=== PATIENT | male | born 1945 | race Caucasian/White ===

== ENCOUNTER 2024-11-06 06:19 | Day surgery (SDC) | payer MEDICARE, BC, SELFPAY ==
[2024-11-06] VITALS (16 sets, daily range): BP systolic 91–141; BP diastolic 48–77; PULSE 44–59; RESP 16–20; TEMP 35.9–36.7; O2SAT 94–99; BMI 23.0
[2024-11-06] MEDS: LACTATED RINGERS 1000 ML 1,000 ML 100 ML IV ×2 (07:00→08:17)
[2024-11-06] MEDS: ACETAMINOPHEN 500 MG TABLET 1000 MG PO (07:15)
[2024-11-06] MEDS: OXYCODONE (CR) 10 MG TAB.ER.12H PO (07:15)
[2024-11-06] MEDS: MIDAZOLAM HCL 1 MG/ML inj IVP (07:30)
[2024-11-06] MEDS: fentaNYL 100 MCG/2 ML inj IVP (07:30)
--- NOTE | 2024-11-06 07:40 | SUR.PREOP ---
TIME?OUT:? 0725, lefet shoulder PT/RN/MDA?VERIFICATION?OF?SURGICAL?SITE,?PROCEDURE,?AND?CONSENT OBTAINED?PRIOR?TO?INVASIVE?PROCEDURE.
[2024-11-06] MEDS: CEFAZOLIN 1 GM inj IVP (08:09)
[2024-11-06] MEDS: TRANEXAMIC ACID 100 MG/ML INJ 1000 MG IV (08:09)
--- NOTE | 2024-11-06 08:20 | W.PM.NB ---
Nerve Block Nerve Block Time Seen by Provider: 07:42 Date Seen: 11/06/24 Type of block requested by surgeon for post-operative analgesia: supraclavicular Side: left Time out performed: Yes Verification of patient name: Yes Verification of date of : Yes Site marking: site marked Name of person performing procedure: Carlos A Continuous monitoring Was continuous monitoring of O2 sat, B/P, lunchroom monitor, recorded every 15 minutes?: Yes Procedure Checklist: sterile prep, needles and gloves Ultrasound guided. Images saved: Yes Medications given in 5ml increments after negative aspiration: Marcaine %: 0.25 mL: 7.5 Needle gauge: 22 and Exparel mL: 7.5 Patient tolerated procedure well: Yes Block Charges Block Charge (with Pro Fee): Brachial Plexus Use of Ultrasound Machine for Block: Yes- US Guidance/pain block
--- NOTE | 2024-11-06 09:20 | P.ANES_ITS ---
Anesthesia Charges Start Date/Time Anesthesia Start Date: 11/06/24 Anesthesia Start Time: 07:40 Stop Date/Time Anesthesia Stop Date: 11/06/24 Anesthesia Stop Time: 10:18 Summary Extremes of Age - Over 70 or under 1: MDA Coding CPT Codes CPT Codes: ANESTH SHOULDER REPLACEMENT - 97913 ([id number]) P3 - PATIENT W/SEVERE SYS DISEASE, QK - ADMINISTRATIVE CLERK 2-4 CNCRNT ANES PROC, QX - NATIONAL SALES ASSOCIATE SVC W/ MD MED DIRECTION Additional Codes: Summary - Extremes of Age - Over 70 or under 1: MDA ([id number])
--- NOTE | 2024-11-06 09:20 | W.ANESCHARGE ---
Anesthesia Charges Start Date/Time Anesthesia Start Date: 11/06/24 Anesthesia Start Time: 07:40 Stop Date/Time Anesthesia Stop Date: 11/06/24 Anesthesia Stop Time: 10:18 Summary Extremes of Age - Over 70 or under 1: MDA Coding CPT Codes CPT Codes: ANESTH SHOULDER REPLACEMENT - 19982 ([id number]) P3 - PATIENT W/SEVERE SYS DISEASE, QK - RESAW OPERATOR 2-4 CNCRNT ANES PROC, QX - INSTRUCTOR GROUND SERVICES SVC W/ MD MED DIRECTION Additional Codes: Summary - Extremes of Age - Over 70 or under 1: MDA ([id number])
--- NOTE | 2024-11-06 09:33 | CRLHL7_ITS ---
For Patients: As a result of the Cures Act, medical imaging exams and procedure reports are released immediately into your electronic medical record. You may view this report before your referring provider. If you have questions, please contact your health care provider. Indication: Postop Technique: Two views left shoulder Findings/Impression: Hardware from a left reverse total shoulder arthroplasty is in satisfactory position. Bone alignment is normal. No sign of acute fracture. Postop changes are within normal limits. Dictated by Tin Karimi MD @ 11/06/2024 10:53:41 AM (Electronically Signed)
--- NOTE | 2024-11-06 09:34 | P.ORPRC_ITS ---
Procedure Note Date of procedure: 11/06/24 Procedure: PREOPERATIVE DIAGNOSIS: Left shoulder rotator cuff tear arthropathy POSTOPERATIVE DIAGNOSIS: Left shoulder rotator cuff tear arthropathy NAME OF OPERATION: Left upper extremity reverse shoulder arthroplasty, biceps tenodesis SURGEON: Siva Nguyen MD COAL FEEDER OPERATOR: Lena Salinas PA-C ANESTHESIA: General endotracheal ESTIMATED BLOOD LOSS: 100 mL COMPLICATIONS: None SPECIMENS: None DRAINS: None PREOPERATIVE ANTIBIOTICS: Ancef 1 grams IMPLANTS: 1. Tornier 25mm x 30mm baseplate 2. 36mm standard glenosphere 3. 6B humeral stem 4. Low eccentric +0 humeral tray 5. 36mm +6 polyethylene INDICATIONS: The patient is a 79-year-old with a longstanding history of severe, unrelenting left shoulder pain secondary to rotator cuff tear arthropathy. Despite appropriate nonoperative management, including activity modification, anti-inflammatories, [id number] pain medication, physical therapy, and injections they continue to have pain and disability. Operative intervention was offered. The risks, benefits and expected outcomes were discussed in detail. These included but were not limited to: Infection, bleeding, injury to blood vessel or nerve, venous thromboembolism. All questions were answered to their satisfaction. Use of an ob gyn physician assistant was necessary throughout the case for patient positioning and safety, soft tissue retraction, and closure. PROCEDURE: General anesthesia was administered. The patient was placed in the lazy beach chair position on the operating room table. The left upper extremity was prepped and draped in the usual sterile fashion. A standard deltopectoral incision was made. Subcutaneous dissection was taken with electrocautery to the deltopectoral interval. The cephalic vein was mobilized, lateral branches were cauterized. The vein was taken medially with the pectoralis. We bluntly entered the deltopectoral interval. We freed up the deltoid. The upper 1/3 of the insertion of the pectoralis was divided with cautery. The static retractor was placed. The clavipectoral fascia and CA ligament were divided. The circumflex vessels were controlled with electrocautery. The biceps was dissected out of the bicipital groove, was tagged with a #2 FiberWire suture and divided proximally. Two fiberWire sutures were placed in the subscapularis. The subscap was subperiosteally elevated off of the lesser tuberosity. The humeral head was delivered into the wound. The intramedullary humeral cutting guide was placed. We made the cut at the anatomic neck, in 30? of retroversion. Humeral sounds were used to assess the diameter of the canal. The broach was placed and had good rotational stability. The calcar reamer was used and the protective base plate cover was placed. Attention was then turned to the glenoid. Hohmann retractors were placed poste riorly. The labrum and biceps stump were sharply debrided. The origin of the inferior glenohumeral ligaments were subperiosteally released off of the glenoid. The drill guide was placed. The guide pin was placed in 0? of cephalic tilt. The reamer was used to bleeding bone. The central drill was used x2. The tap was used. The standard base plate was placed. This had excellent purchase. Locking screws x 2 were placed. The glenosphere was placed, the set screw was tightened. Attention then returned to the humerus. We placed a low eccentric standard base plate and standard poly. We reduced the shoulder and took it through a range of motion. It was found to be stable with appropriate soft tissue tension. Trial humeral components were removed. The biceps was tenodesed in the bicipital groove with drill holes and our previously placed FiberWire suture. We placed #2 FiberWire sutures in the lesser tuberosity for subsequent subscap repair. We assembled the humeral component on the back table. We placed it in the center of our subscapularis repair sutures and tapped it down to our humeral cut. This had excellent purchase. The shoulder was reduced and again was found to be sta ble with appropriate soft tissue tension. We did a 3 min dilute Betadine solution soak. We irrigated the wound with 3 L of normal saline via pulse lavage. We repaired the subscapularis to the lesser tuberosity with our previously placed FiberWire sutures. The deltopectoral interval was loosely reapproximated with an 0 Vicryl in an interrupted [id number] fashion. Subcutaneous tissues were closed with the 2-0 Vicryl and a running 3-0 Monocryl suture. The skin was sealed with glue. A dry dressing and sling were applied. Sponge and needle counts were correct x2. The patient tolerated the procedure well, there were no apparent complications. They were awakened and extubated in the operating room, taken to the postanesthesia care unit in satisfactory condition. PLAN: The patient will be mobilized with physical therapy. The sling will be used for 6 weeks postoperatively. Active range of motion in forward flexion and abduction as tolerates. No external rotation greater than 0? for 6 weeks postoperatively. They will be discharged to home once medically appropriate.
--- NOTE | 2024-11-06 10:17 | P.ANES_ITS ---
Anesthesia Charges Start Date/Time Anesthesia Start Date: 11/06/24 Anesthesia Start Time: 07:40 Stop Date/Time Anesthesia Stop Date: 11/06/24 Anesthesia Stop Time: 10:18 Summary Extremes of Age - Over 70 or under 1: DAYCARE TEACHER Coding CPT Codes CPT Codes: ANESTH SHOULDER REPLACEMENT - 98924 ([id number]) P3 - PATIENT W/SEVERE SYS DISEASE, QK - DENTAL OFFICER 2-4 CNCRNT ANES PROC, QX - DAYCARE TEACHER SVC W/ MD MED DIRECTION Additional Codes: Summary - Extremes of Age - Over 70 or under 1: DAYCARE TEACHER ([id number])
--- NOTE | 2024-11-06 10:17 | W.ANESCHARGE ---
Anesthesia Charges Start Date/Time Anesthesia Start Date: 11/06/24 Anesthesia Start Time: 07:40 Stop Date/Time Anesthesia Stop Date: 11/06/24 Anesthesia Stop Time: 10:18 Summary Extremes of Age - Over 70 or under 1: HOSE SUSPENDER CUTTER Coding CPT Codes CPT Codes: ANESTH SHOULDER REPLACEMENT - 77848 ([id number]) P3 - PATIENT W/SEVERE SYS DISEASE, QK - INFORMATION SERVICES CONSULTANT 2-4 CNCRNT ANES PROC, QX - HOSE SUSPENDER CUTTER SVC W/ MD MED DIRECTION Additional Codes: Summary - Extremes of Age - Over 70 or under 1: HOSE SUSPENDER CUTTER ([id number])
--- NOTE | 2024-11-06 13:49 | SUR.PHASEII ---
pt has been meeting with OT in room since 13:00
== END 2024-11-06 14:00 | disposition home or self-care (01) ==
LOC: OR 06:21
PROVIDERS: PCP Internal Medicine; Visit Provider Orthopaedic Surgery
PROC: 0RRJ0JZ Replacement of Right Shoulder Joint with Synthetic Substitute, Open Approach (ICD-10-PCS; CPT 23472; principal; 2024-11-06 07:45)
DX: M75.102 Unspecified rotator cuff tear or rupture of left shoulder, not specified as traumatic (principal); G89.18 Other acute postprocedural pain
CPT/HCPCS: 23472; 23430; 01638; 64415; 73030; 76942; 97110; 97165; 97535; 99100; A9270; C1713; C1776; J0665; J0666; J0690; J1100; J2250; J2371; J2405; J2704; J2710; J3010; J7120; L3670

== ENCOUNTER 2025-02-18 07:45 | Outpatient (RCR) | payer MEDICARE, BC, SELFPAY ==
--- NOTE | 2024-11-26 14:25 | PT.OPEX ---
[facility] Outpatient Eval PT XI Outpatient Eval Start: 11/25/24 14:37 Freq: Status: Active Protocol: Document 11/26/24 08:23 HLA (Rec: 11/26/24 14:15 HLA [id number]) E-signed By Alesia Lance PT, DPT Physical Therapy Outpatient Evaluation Insurance Information Recert Due Date 02/23/25 Insurance Name [employer] Medical Diagnosis L reverse TSA with biceps tenodesis 11/06/24 PMHx includes spinal stenosis, nephrotic syndrome, acute kidney injury, COPD, anemia, OA, NSTEMI, hyperlipidemia, hypercholesterolemia, HTN, back fusion. Treating Diagnosis weakness, impaired ROM L shldr s/p L reverse TSA Referring MD Nguyen Subjective Preferred Name Austin Subjective He is currently wearing his shldr immobilizer most of the times, does take it off at rest. Pt arrives today with his spouse, wearing his immobilizer. He has been doing elbow/wrist/hand ex at home and pendulum ex to the best of his ability, using NICE machine. He is not taking oxycodone, only Tylenol. Spouse assisting with ADLs at this time. Pain has been manageable, 2-3 at the most. Pain Comments 07/21 Date of Last 11/13/24 Physician Visit Date of Surgery (If 11/06/24 applicable) Current Work Status Retired Precautions Treatment Active flex/abd, no ER >0 x 6 weeks Precautions/ Contraindications Weight Bearing Non-Weight Bearing Status Therapy Limitations/ Not Limited Systems Review Objective Range of Motion L shldr passive flex/abd 0-95 ER to neutral IR to chest elbow full wrist/hand full R UE Strength L shldr nt L elbow 5/5 L elbow/wrist/hand 5/5 R UE 5/5 B LEs 5/5 Swelling no edema noted Palpation incision healing, no redness. Balance & Gait Gait ind, no concerns stairs ind Sensation/Reflexes intact to light touch L UE Other/Pertinent [id number] [facility] Objective Assessment Assessment/ Austin is a 79-year-old male with hx of OA, COPD, NSTEMI, Impression spinal stenosis with fusion, nephrotic syndrome, acute kidney injury, HTN, and anemia who underwent a L reverse TSA with Dr. Nguyen on 11/06/24. He had previous R TSA with revision and is doing well with that now ( pt cannot recall date). Pt has orders for active flex/ abd, no ER> 0 and shldr immobilizer for 6 weeks. He is able to recall his precautions and is doing his ex with spouse's support. Pt presents with 0-95 flex and abd L shldr PROM, AAROM 0-85 flex and abd. ER to neutral instructed, IR to chest. Elbow/wrist/hand WNL. Pain 2-3 /10. Instructed in safety, use of immobilizer, ex, positioning, use of ice and advancement in PT per protocol. Pt's goal to return to ADLs and light activity ind without pain. Primary Functional impaired ROM L shldr, impaired strength, impaired ADLs, Limitations pain Plan of Care Rehabilitation Good Potential Physical Therapy Within 4 weeks: Goals 1. Pt will demonstrate independence in shoulder ROM program (no ER>0), active elbow/wrist/hand for prevention of contracture and reduction of pain of surgical shoulder. 2. Patient will don/doff L shldr immobilizer independently. Within 12 weeks: 1. Pt will have 0-170 degrees shoulder flexion and abduction, ER 0-70 degrees and IR of shoulder WNL for independence in ADLs. 2. Pt will have return of surgical shoulder strength to functional level to allow independence in ADLs and work-related tasks. Coordination/ Referral Source,Patient Caregiver Communication With Treatment Plan/ Dry Needling,Gait Training,Ice/Cold/Vasopneumatic,Joint Direct Interventions Mobilization,Manual Therapy,Neuromuscular Re-ed, Orthotics/Braces,Self-Care/Home Management,Therapeutic Activities,Therapeutic Exercises Frequency/Duration 1x/week x 10-12 weeks Patient Will Be Completion of LTG(s),Skills Plateau,Independent w/HEP, Discharged From Independently Progressing Therapy Evaluation Billing Untimed Code 15 Treatment Minutes PT Eval No Charge No Complexity Low Certification Information Initial 11/26/24 Certification Date Ending Certification 02/23/25 Date Provider Signature Yes Required Provider Signature POC & Medical Necessity Shows Agreement With Physician NPI Number Write NPI# Here Physician Comment/ : Change Physician Signature Please Sign/Date Here & Date Requested
== END 2025-02-18 09:18 | disposition home or self-care (01) ==
PROVIDERS: PCP Internal Medicine; Visit Provider Orthopaedic Surgery
DX: Z48.89 Encounter for other specified surgical aftercare (principal); Z96.612 Presence of left artificial shoulder joint; Z51.89 Encounter for other specified aftercare
CPT/HCPCS: 97110; 97140; 97161